=== PATIENT | male | born 1955 | race Caucasian/White ===

== ENCOUNTER 2021-07-10 11:03 | Emergency (ER) | payer MEDICARE, BC ==
[2021-07-10] MEDS ORDERED: Sodium Chloride 0.9% 1000 ML 1,000 ML IV STA (11:13)
[2021-07-10] MEDS ORDERED: Zofran 4 MG/2 ML VIAL IV ONE (11:13)
[2021-07-10] MEDS ORDERED: Zofran 4 MG/2 ML VIAL ONE (11:21)
[2021-07-10] MEDS ORDERED: Sodium Chloride 0.9% 1000 ML 1,000 ML ONE (11:21)
[2021-07-10 11:34] LABS: Appearance SLIGHTLY CLOUDY (CLEAR); Bacteria RARE /HPF (NEGATIVE); Bilirubin NEGATIVE (NEGATIVE); Blood MODERATE Ery/ul (0-5); Glucose NEGATIVE (NEGATIVE); Ketones NEGATIVE (NEGATIVE); Leukocyte Esterase NEGATIVE (NEGATIVE); Mucus SLIGHT /HPF (NEGATIVE); Nitrite NEGATIVE (NEGATIVE); Protein,Urine Dip 30 (Negative); RBC >101 /HPF (0-2); Specific Gravity 1.021 (1.005-1.025); Urobilinogen NEGATIVE mg/dL (0-1)
[2021-07-10 11:35] LABS: Absolute Neutrophil Ct (ANC) 4.84 (1.4-6.9); Basophil (Absolute #) 0.02 (0-0.4); Eosinophil % 0.7 % (0.00-5.0); Eosinophil (Absolute #) 0.05 (0-0.5); Hematocrit 44.6 % (42-50); Hemoglobin 13.8 gm/dl (12.5-18.0); Lymphocyte (Absolute #) 1.52 (1.0-4.6); Lymphocytes % 22.1 % (24.0-44.0); Mean Corpuscular Hemoglobin 30.9 pg (26-32); Mean Corpuscular Hgb Concent. 30.9 g/dl (32-36); Mean Platelet Volume 11.6 fl (7.5-11.0); Monocyte (Absolute #) 0.46 (0.0-1.3); Monocytes % 6.7 % (0.0-12.0); Neutrophil % 70.2 % (36.0-66.0); Platelet Count 106 K/mm3 (150-450); Red Blood Count 4.46 M/mm3 (4.1-5.6); Red Cell Distribution Width 13.1 % (11.5-14.0); White Blood Count 6.9 K/mm3 (4.0-10.5)
[2021-07-10 11:45] LABS: ALBUMIN 4.1 g/dL (3.5-5.0); ALKALINE PHOSPHATASE 91 U/L (38-126); AMYLASE 61 U/L (30-110); ANION GAP 9.7 MEQ/L (5-15); BLOOD UREA NITROGEN 25 mg/dL (9-20); CHLORIDE 111 mmol/L (98-107); Calcium 8.4 mg/dL (8.4-10.2); Carbon Dioxide 23 mmol/L (22-30); Creatinine 1 1.21 mg/dL (0.66-1.25); EST GLOMERULAR FILTRATION RATE > 60.0 ML/MIN; Glucose 138 mg/dL (74-106); LIPASE 131 U/L (23-300); Potassium 3.9 mmol/L (3.5-5.1); SGOT/AST 32 U/L (17-59); SGPT/ALT 15 U/L (0-50); SODIUM 140 mmol/L (137-145)
--- NOTE | 2021-07-10 12:31 | XRAY ---
Indication: Right flank pain. Multiple contiguous axial images obtained through the abdomen and pelvis without contrast using renal stone protocol. Comparison: None Lung bases demonstrates small right lower lobe calcified granuloma posterior medially. No infiltrate or effusion. Heart not enlarged. Small hiatal hernia. There is a 5 mm right UVJ calculus. Proximal right ureter is prominent up to 9 mm along with mild hydronephrosis consistent with obstructive uropathy. Additional right lower renal punctate calculus. A few bilateral renal cysts, largest left midpole measuring 3.7 cm. Right mid kidney demonstrates a 3.5 cm round exophytic mass more dense than a simple cyst either solid renal mass versus complex/viscous cyst. Previous bariatric surgery. Noncontrasted stomach and bowel loops appear nonobstructed. Large bilateral inguinal hernias, right greater than left both with herniated bowel loops but no obstruction/incarceration. No free fluid/air. 1.9 cm gallstone and tiny hepatic/splenic calcified granulomas. Remaining liver, gallbladder, pancreas, spleen, adrenal glands, kidneys, ureters, and bladder are unremarkable for noncontrast exam. Mild scattered vascular calcifications without AAA. Osseous structures intact with mild osteopenia, minimal/mild degenerative changes throughout the spine, and mild levoscoliosis centered at L3. Impression: 1. 5 mm right UVJ calculus producing partial obstruction as detailed. Additional right renal punctate calculus. 2. Bilateral renal cysts. 3.5 cm right mid renal exophytic cyst more dense than a simple cyst, possible solid mass versus complex/viscous cyst. Renal ultrasound could help differentiate. 3. Large inguinal hernias, right greater than left as detailed without complications. 4. Incidental small hiatal hernia, chronic bony findings, and old granulomatous disease.
--- NOTE | 2021-07-10 12:33 | XRAY ---
Indication: Right flank pain. Comparison: None Portable chest demonstrates mild right infrahilar infiltrate versus atelectasis. Incidental large chunky right paratracheal and small medial right lung base calcified granulomas. Heart not enlarged with tortuous descending aorta. Bony thorax intact with mild osteopenia and degenerative changes. Impression: 1. Right infrahilar infiltrate versus atelectasis. 2. Chronic bony findings and old granulomatous disease.
--- NOTE | 2021-07-10 12:49 | ERPHSYRPT ---
- History of Present Illness Time Seen by Provider: 07/10/21 11:19 Historian: patient Exam Limitations: no limitations Patient Subjective Stated Complaint: Pt states "I have pain in my lower right back that goes aruond to the side." Triage Nursing Assessment: Pt presented alert and oriented X3, skin wpd Pt ambulates with an upright steady gait, able to speak in clear full sentences pt in no apparent respiratory distress. pt laying calmly on the bed. Physician History: Is a 65-year-old male who presents with a sudden onset this morning of right flank pain primarily in the right CVA area. He was recently seen at regional ER for similar type pain but that pain came around to the front and was diagnosed as gas. He had bariatric surgery 4 years ago. He has normal bowel movements he has some nausea and vomiting has had no fever chills or sweats. He is followed for his kidney function by Dr. Sim. Timing/Duration: today Activities at Onset: sleep Quality: stabbing Abdominal Pain Onset Location: flank (Right flank) Severity of Pain-Max: mild Severity of Pain-Current: mild Modifying Factors: Improves With: vomiting Associated Symptoms: nausea, vomiting Previous symptoms: no prior history Allergies/Adverse Reactions: No Known Drug Allergies Allergy (Verified 07/10/21 11:18) Home Medications: Amlodipine Besylate 5 mg PO DAILY 07/10/21 [History] Apixaban [Eliquis 5 mg Tablet] 5 mg PO DAILY 07/10/21 [History] Atorvastatin Calcium 40 mg PO DAILY 07/10/21 [History] Bisoprolol/Hydrochlorothiazide [Ziac 10-6.25 mg Tablet] 1 each PO DAILY 07/10/21 [History] Levothyroxine Sodium [Euthyrox] 200 mcg PO DAILY 07/10/21 [History] Omeprazole 20 mg PO DAILY 07/10/21 [History] Hx Tetanus, Diphtheria Vaccination/Date Given: No Hx Influenza Vaccination/Date Given: Yes Hx Pneumococcal Vaccination/Date Given: Yes Immunizations Up to Date: Yes Travel Risk - International Travel Have you traveled outside of the country in past 3 weeks: No - Coronavirus Screening Are you exhibiting any of the following symptoms?: No Close contact with a COVID-19 positive Pt in past 14-21 Days: No - Vaccine Status Have you recieved a Covid-19 vaccination: Yes 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 - Vaccination Dates Date of 2cond Vaccination (if applicable): 07/06/2020 - Review of Systems Constitutional: No Fever, No Chills Eyes: No Symptoms Ears, Nose, & Throat: No Symptoms Respiratory: No Cough, No Dyspnea Cardiac: No Chest Pain, No Edema, No Syncope Abdominal/Gastrointestinal: Nausea, Vomiting, No Abdominal Pain, No Diarrhea Genitourinary Symptoms: Flank Pain, No Dysuria Musculoskeletal: No Back Pain, No Neck Pain Skin: No Rash Neurological: No Dizziness, No Focal Weakness, No Sensory Changes Psychological: No Symptoms Endocrine: No Symptoms All Other Systems: Reviewed and Negative - Past Medical History Pertinent Past Medical History: Yes Neurological History: No Pertinent History ENT History: No Pertinent History Cardiac History: High Cholesterol, Hypertension Respiratory History: No Pertinent History Endocrine Medical History: Diabetes Type II Musculoskeletal History: No Pertinent History GI Medical History: No Pertinent History History: Renal Disease Psycho-Social History: No Pertinent History Male Reproductive Disorders: No Pertinent History - Past Surgical History Past Surgical History: Yes Other Surgical History: gastric bypass - Social History Smoking Status: Never smoker Exposure to second hand smoke: No Drug Use: none Patient Lives Alone: No - Nursing Vital Signs Nursing Vital Signs: Initial Vital Signs Temperature 97.2 F 07/10/21 11:09 Pulse Rate 64 07/10/21 11:09 Respiratory Rate 20 07/10/21 11:09 Blood Pressure 142/85 07/10/21 11:09 O2 Sat by Pulse Oximetry 98 07/10/21 11:09 Pain Scale Pain Intensity 5 - Physical Exam General Appearance: no apparent distress, alert Eye Exam: PERRL/EOMI, eyes nml inspection Ears, Nose, Throat Exam: normal ENT inspection, pharynx normal, moist mucous membranes Neck Exam: normal inspection, non-tender, supple, full range of motion Respiratory Exam: normal breath sounds, lungs clear, No respiratory distress Cardiovascular Exam: regular rate/rhythm, normal heart sounds Gastrointestinal/Abdomen Exam: soft, No tenderness, No mass Back Exam: normal inspection, normal range of motion, No CVA tenderness, No vertebral tenderness Extremity Exam: normal inspection, normal range of motion, pelvis stable Neurologic Exam: alert, oriented x 3, cooperative, normal mood/affect, nml cerebellar function, sensation nml, No motor deficits Skin Exam: normal color, warm, dry SpO2: 97 - Course Nursing assessment & vital signs reviewed: Yes - Radiology Exams Chest X-ray Interpretation: Reviewed by me (Right infrahilar infiltrate versus atelectasis) - CT Exams Abdomen/Pelvis CT Interpretation: Other (Negative patient has a 5 mm stone at the UVJ on the right bilateral inguinal hernias multiple renal cyst there is a right renal cyst which needs further evaluation by ultrasound.) Ordered Tests: Active Orders 24 hr Category Date Time Status EKG-ER Only STAT Care 07/10/21 11:13 Active IV Insertion STAT Care 07/10/21 11:13 Active ABDOMEN AND PELVIS W/0 CONTRAS [CT] Stat Exams 07/10/21 11:13 Completed CHEST 1 VIEW (PORTABLE) Stat Exams 07/10/21 11:13 Completed AMYLASE Stat Lab 07/10/21 11:20 Completed CBC W DIFF Stat Lab 07/10/21 11:20 Completed CMP Stat Lab 07/10/21 11:20 Completed CULTURE,URINE Stat Lab 07/10/21 11:20 Received LIPASE Stat Lab 07/10/21 11:20 Completed Lactic Acid Stat Lab 07/10/21 11:13 Completed TROPONIN Q3H Lab 07/10/21 11:20 Completed TROPONIN Q3H Lab 07/10/21 14:15 Ordered TROPONIN Q3H Lab 07/10/21 17:15 Ordered TROPONIN Q3H Lab 07/10/21 20:15 Ordered TROPONIN Q3H Lab 07/10/21 23:15 Ordered UA W/RFX UR CULTURE Stat Lab 07/10/21 11:20 Completed Medication Summary Discontinued Medications Generic Name Dose Route Start Last Admin Trade Name Freq PRN Reason Stop Dose Admin Sodium Chloride 1,000 mls @ 999 mls/hr 07/10/21 11:13 07/10/21 12:31 Sodium Chloride 0.9% 1000 Ml IV 07/10/21 12:13 Infused .Q1H1M STA Infusion Sodium Chloride Confirm 07/10/21 11:21 Sodium Chloride 0.9% 1000 Ml Administered 07/10/21 11:22 Dose 1,000 mls @ ud .ROUTE .STK-MED ONE Ondansetron HCl 4 mg 07/10/21 11:13 07/10/21 11:24 Ondansetron Hcl 4 Mg/2 Ml Vial IV 07/10/21 11:14 4 mg STAT ONE Administration Ondansetron HCl Confirm 07/10/21 11:21 Ondansetron Hcl 4 Mg/2 Ml Vial Administered 07/10/21 11:22 Dose 4 mg .ROUTE .K-MED ONE Lab/Rad Data: Laboratory Result Diagrams 07/10/21 11:20 07/10/21 11:20 Laboratory Results 07/10/21 07/10/21 07/10/21 Range/Units 11:20 11:20 11:20 WBC 6.9 (4.0-10.5) K/mm3 RBC 4.46 (4.1-5.6) M/mm3 Hgb 13.8 (12.5-18.0) gm/dl Hct 44.6 (42-50) % MCV 100.0 (78-100) fl MCH 30.9 (26-32) pg MCHC 30.9 L (32-36) g/dl RDW 13.1 (11.5-14.0) % Plt Count 106 L (150-450) K/mm3 MPV 11.6 H (7.5-11.0) fl Gran % 70.2 H (36.0-66.0) % Eos # (Auto) 0.05 (0-0.5) Absolute Lymphs (auto) 1.52 (1.0-4.6) Absolute Monos (auto) 0.46 (0.0-1.3) Lymphocytes % 22.1 L (24.0-44.0) % Monocytes % 6.7 (0.0-12.0) % Eosinophils % 0.7 (0.00-5.0) % Basophils % 0.3 (0.0-0.4) % Absolute Granulocytes 4.84 (1.4-6.9) Basophils # 0.02 (0-0.4) Sodium 140 (137-145) mmol/L Potassium 3.9 (3.5-5.1) mmol/L Chloride 111 H (98-107) mmol/L Carbon Dioxide 23 (22-30) mmol/L Anion Gap 9.7 (5-15) MEQ/L BUN 25 H (9-20) mg/dL Creatinine 1.21 (0.66-1.25) mg/dL Estimated GFR > 60.0 ML/MIN Glucose 138 H (74-106) mg/dL Lactic Acid (0.4-2.0) Calcium 8.4 (8.4-10.2) mg/dL Total Bilirubin 0.70 (0.2-1.3) mg/dL AST 32 (17-59) U/L ALT 15 (0-50) U/L Alkaline Phosphatase 91 (38-126) U/L Troponin I < 0.012 (0.000-0.034) ng/mL Serum Total Protein 7.0 (6.3-8.2) g/dL Albumin 4.1 (3.5-5.0) g/dL Amylase 61 (30-110) U/L Lipase 131 (23-300) U/L Urine Color (YELLOW) Urine Appearance (CLEAR) Urine pH (5-6) Ur Specific [place] (1.005-1.025) Urine Protein (Negative) Urine Ketones (NEGATIVE) Urine Blood (0-5) Justin/ul Urine Nitrite (NEGATIVE) Urine Bilirubin (NEGATIVE) Urine Urobilinogen (0-1) mg/dL Ur Leukocyte Esterase (NEGATIVE) Urine WBC (Auto) (0-5) /HPF Urine RBC (Auto) (0-2) /HPF U Epithel Cells (Auto) (FEW) /HPF Urine Bacteria (Auto) (NEGATIVE) /HPF Urine Mucus (Auto) (NEGATIVE) /HPF Urine Culture Reflexed (NO) Urine Glucose (NEGATIVE) mg/dL 07/10/21 07/10/21 Range/Units 11:20 11:13 WBC (4.0-10.5) K/mm3 RBC (4.1-5.6) M/mm3 Hgb (12.5-18.0) gm/dl Hct (42-50) % MCV (78-100) fl MCH (26-32) pg MCHC (32-36) g/dl RDW (11.5-14.0) % Plt Count (150-450) K/mm3 MPV (7.5-11.0) fl Gran % (36.0-66.0) % Eos # (Auto) (0-0.5) Absolute Lymphs (auto) (1.0-4.6) Absolute Monos (auto) (0.0-1.3) Lymphocytes % (24.0-44.0) % Monocytes % (0.0-12.0) % Eosinophils % (0.00-5.0) % Basophils % (0.0-0.4) % Absolute Granulocytes (1.4-6.9) Basophils # (0-0.4) Sodium (137-145) mmol/L Potassium (3.5-5.1) mmol/L Chloride (98-107) mmol/L Carbon Dioxide (22-30) mmol/L Anion Gap (5-15) MEQ/L BUN (9-20) mg/dL Creatinine (0.66-1.25) mg/dL Estimated GFR ML/MIN Glucose (74-106) mg/dL Lactic Acid 2.3 H (0.4-2.0) Calcium (8.4-10.2) mg/dL Total Bilirubin (0.2-1.3) mg/dL AST (17-59) U/L ALT (0-50) U/L Alkaline Phosphatase (38-126) U/L Troponin I (0.000-0.034) ng/mL Serum Total Protein (6.3-8.2) g/dL Albumin (3.5-5.0) g/dL Amylase (30-110) U/L Lipase (23-300) U/L Urine Color YELLOW (YELLOW) Urine Appearance SLIGHTLY CLOUDY (CLEAR) Urine pH 5.0 (5-6) Ur Specific [place] 1.021 (1.005-1.025) Urine Protein 30 (Negative) Urine Ketones NEGATIVE (NEGATIVE) Urine Blood MODERATE (0-5) Justin/ul Urine Nitrite NEGATIVE (NEGATIVE) Urine Bilirubin NEGATIVE (NEGATIVE) Urine Urobilinogen NEGATIVE (0-1) mg/dL Ur Leukocyte Esterase NEGATIVE (NEGATIVE) Urine WBC (Auto) 6-10 (0-5) /HPF Urine RBC (Auto) >101 (0-2) /HPF U Epithel Cells (Auto) NONE (FEW) /HPF Urine Bacteria (Auto) RARE (NEGATIVE) /HPF Urine Mucus (Auto) SLIGHT (NEGATIVE) /HPF Urine Culture Reflexed YES (NO) Urine Glucose NEGATIVE (NEGATIVE) mg/dL - Progress Progress: improved Progress Note: 07/10/21 12:49 Patient was informed of the findings and was told to follow-up with Dr. Ro enriquez for evaluation of the right renal cyst. He was also told that he should get further evaluation if he has not passed the stone within 48 hours. - Departure Departure Disposition: Home Clinical Impression: Right ureteral stone, Renal cyst Condition: Stable Critical Care Time: No Referrals: JANKI HERNANDEZ MD [Primary Care Provider] - Follow up/PCP as directed Instructions: Kidney Stones (DC) Prescriptions: Hydrocodone/Acetaminophen [Hydrocodone-Acetamin 5-325 mg] 1 tab PO Q6HPRN PRN 3 Days #12 tablet MDD 4 PRN Reason: Pain Ondansetron ODT 4 MG [Zofran Odt 4 mg] 4 mg PO Q6H PRN PRN #10 tablet PRN Reason: Vomiting Cephalexin Mh 500 mg [Keflex 500 mg] 500 mg PO TID 7 Days #21 cap
[2021-07-10 12:59] VITALS: BP 124/74; PULSE 61; O2SAT 93
== END 2021-07-10 13:04 | disposition home or self-care (01) ==
LOC: ED 11:03
DX: N13.2 Hydronephrosis with renal and ureteral calculous obstruction (principal); N28.1 Cyst of kidney, acquired; R11.2 Nausea with vomiting, unspecified; E78.5 Hyperlipidemia, unspecified; I10 Essential (primary) hypertension; E11.9 Type 2 diabetes mellitus without complications; Z98.84 Bariatric surgery status; Z79.01 Long term (current) use of anticoagulants; Z79.899 Other long term (current) drug therapy; Z79.891 Long term (current) use of opiate analgesic
CPT/HCPCS: 36000; 36415; 71045; 74176; 80053; 81001; 82150; 83605; 83690; 84484; 85025; 87086; 93005; 96360; 96374; 99284; J2405

== ENCOUNTER 2021-10-19 12:29 | Emergency (ER) | payer MEDICARE, BC ==
[2021-10-19] MEDS ORDERED: MORPHINE SULFATE 4 MG INJ IV ONE (13:10)
[2021-10-19] MEDS ORDERED: Zofran 4 MG/2 ML VIAL IV ONE (13:10)
[2021-10-19 13:27] LABS: Absolute Neutrophil Ct (ANC) 6.64 x10^3/uL (1.4-6.9); Basophil (Absolute #) 0.04 x10^3/uL (0-0.4); Eosinophil % 0.2 % (0.00-5.0); Eosinophil (Absolute #) 0.02 x10^3/uL (0-0.5); Hematocrit 43.4 % (42-50); Hemoglobin 13.7 g/dL (12.5-18.0); Lymphocyte (Absolute #) 1.09 x10^3/uL (1.0-4.6); Mean Cell Volume 98.4 fL (78-100); Mean Corpuscular Hemoglobin 31.1 pg (26-32); Mean Corpuscular Hgb Concent. 31.6 g/dL (32-36); Mean Platelet Volume 10.7 fL (7.5-11.0); Monocyte (Absolute #) 0.57 x10^3/uL (0.0-1.3); Monocytes % 6.8 % (0.0-12.0); Neutrophil % 79.1 % (36.0-66.0); Platelet Count 113 x10^3/uL (150-450); Red Blood Count 4.41 x10^6/uL (4.1-5.6); Red Cell Distribution Width 12.9 % (11.5-14.0); White Blood Count 8.4 x10^3/uL (4.0-10.5)
[2021-10-19] MEDS ORDERED: Zofran 4 MG/2 ML VIAL ONE (13:33)
[2021-10-19] MEDS ORDERED: MORPHINE SULFATE 4 MG INJ ONE (13:33)
--- NOTE | 2021-10-19 13:37 | ERPHSYRPT ---
- History of Present Illness Time Seen by Provider: 10/19/21 12:35 Historian: patient Exam Limitations: no limitations Patient Subjective Stated Complaint: pt here for lower abd pain since yesterday, had a kidney stone last month, no fever or vomiting Triage Nursing Assessment: pt alert, resp easy, skin w/d/p. abd soft, no edma noted Physician History: 65-year-old morbidly obese male with bilateral inguinal hernias presented to the ER with chief complaint of lower abdominal pain intermittently since yesterday sharp back pain with radiation to the back without any associated aggravating or relieving factors. Reports having similar symptoms last month and had a kidney stone. No associated nausea vomiting or diarrhea reported. Denies any urinary symptoms. No fever or chills reported Timing/Duration: yesterday, intermittent, gradual onset, worse Activities at Onset: rest Quality: cramping, sharpness Abdominal Pain Onset Location: RLQ, LLQ, flank Pain Radiation: back Severity of Pain-Max: moderate Severity of Pain-Current: moderate Modifying Factors: Improves With: nothing Associated Symptoms: denies symptoms Previous symptoms: same symptoms as today Allergies/Adverse Reactions: No Known Drug Allergies Allergy (Verified 10/19/21 12:46) Home Medications: Amlodipine Besylate 5 mg PO DAILY 07/10/21 [History] Apixaban [Eliquis 5 mg Tablet] 5 mg PO DAILY 07/10/21 [History] Atorvastatin Calcium 40 mg PO DAILY 07/10/21 [History] Bisoprolol/Hydrochlorothiazide [Ziac 10-6.25 mg Tablet] 1 each PO DAILY 07/10/21 [History] Levothyroxine Sodium [Euthyrox] 225 mcg PO DAILY 07/10/21 [History] Omeprazole 20 mg PO DAILY 07/10/21 [History] Hx Tetanus, Diphtheria Vaccination/Date Given: No Hx Influenza Vaccination/Date Given: Yes Hx Pneumococcal Vaccination/Date Given: Yes Immunizations Up to Date: Yes Travel Risk - International Travel Have you traveled outside of the country in past 3 weeks: No - Coronavirus Screening Are you exhibiting any of the following symptoms?: No Close contact with a COVID-19 positive Pt in past 14-21 Days: No - Vaccine Status Have you recieved a Covid-19 vaccination: Yes 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 - Vaccination Dates Date of 2cond Vaccination (if applicable): 07/06/2020 - Review of Systems Constitutional: No Symptoms Eyes: No Symptoms Respiratory: No Symptoms Cardiac: No Symptoms Abdominal/Gastrointestinal: Abdominal Pain Genitourinary Symptoms: No Symptoms Musculoskeletal: Arthralgias Skin: No Symptoms Neurological: No Symptoms Endocrine: No Symptoms Hematologic/Lymphatic: No Symptoms Immunological/Allergic: No Symptoms - Past Medical History Pertinent Past Medical History: Yes Neurological History: No Pertinent History ENT History: No Pertinent History Cardiac History: High Cholesterol, Hypertension Respiratory History: No Pertinent History Endocrine Medical History: Diabetes Type II Musculoskeletal History: No Pertinent History GI Medical History: No Pertinent History History: Renal Disease Psycho-Social History: No Pertinent History Male Reproductive Disorders: No Pertinent History - Past Surgical History Past Surgical History: Yes Gastrointestinal: Hernia Repair Other Surgical History: gastric bypass,thyroid - Social History Smoking Status: Never smoker Exposure to second hand smoke: No Drug Use: none Patient Lives Alone: No - Nursing Vital Signs Nursing Vital Signs: Initial Vital Signs Temperature 97.6 F 10/19/21 12:40 Pulse Rate 58 L 10/19/21 12:40 Respiratory Rate 18 10/19/21 12:40 Blood Pressure 157/87 10/19/21 12:40 O2 Sat by Pulse Oximetry 95 10/19/21 12:40 Pain Scale Pain Intensity 5 - Physical Exam General Appearance: no apparent distress, alert Eye Exam: PERRL/EOMI Ears, Nose, Throat Exam: normal ENT inspection Neck Exam: normal inspection, full range of motion Respiratory Exam: normal breath sounds, lungs clear Cardiovascular Exam: regular rate/rhythm, normal heart sounds Gastrointestinal/Abdomen Exam: soft, normal bowel sounds, tenderness (Lower abdomen bilaterally without guarding or rebound tenderness) Back Exam: normal inspection, normal range of motion, No CVA tenderness Extremity Exam: normal inspection, normal range of motion, pelvis stable Neurologic Exam: alert, oriented x 3, cooperative Skin Exam: normal color SpO2 Interpretation: normal SpO2: 95 O2 Delivery: Room Air Ordered Tests: Active Orders 24 hr Category Date Time Status IV Insertion STAT Care 10/19/21 13:10 Active NPO (ED) STAT Care 10/19/21 13:10 Active ABDOMEN AND PELVIS W/0 CONTRAS [CT] Stat Exams 10/19/21 13:11 Completed CBC W DIFF Stat Lab 10/19/21 13:26 Completed CMP Stat Lab 10/19/21 13:26 Completed LIPASE Stat Lab 10/19/21 13:26 Completed Lactic Acid Stat Lab 10/19/21 13:27 Completed UA W/RFX CULTURE Stat Lab 10/19/21 14:56 Completed Medication Summary Discontinued Medications Generic Name Dose Route Start Last Admin Trade Name Norma PRN Reason Stop Dose Admin Morphine Sulfate 4 mg 10/19/21 13:10 10/19/21 13:37 Morphine Sulfate 4 Mg/Ml Injection IV 10/19/21 13:11 4 mg STAT ONE Administration Morphine Sulfate Confirm 10/19/21 13:33 Morphine Sulfate 4 Mg/Ml Injection Administered 10/19/21 13:34 Dose 4 mg .ROUTE .STK-MED ONE Ondansetron HCl 4 mg 10/19/21 13:10 10/19/21 13:37 Ondansetron Hcl 4 Mg/2 Ml Vial IV 10/19/21 13:11 4 mg STAT ONE Administration Ondansetron HCl Confirm 10/19/21 13:33 Ondansetron Hcl 4 Mg/2 Ml Vial Administered 10/19/21 13:34 Dose 4 mg .ROUTE .STK-MED ONE Lab/Rad Data: Laboratory Result Diagrams 10/19/21 13:26 10/19/21 13:26 Laboratory Results 10/19/21 10/19/21 10/19/21 Range/Units 14:56 13:27 13:26 WBC (4.0-10.5) x10^3/uL RBC (4.1-5.6) x10^6/uL Hgb (12.5-18.0) g/dL Hct (42-50) % MCV (78-100) fL MCH (26-32) pg MCHC (32-36) g/dL RDW (11.5-14.0) % Plt Count (150-450) x10^3/uL MPV (7.5-11.0) fL Gran % (36.0-66.0) % Immature Gran % (Auto) (0.00-0.4) % Nucleat RBC Rel Count (0.00-0.1) % Eos # (Auto) (0-0.5) x10^3/uL Immature Gran # (Auto) (0.00-0.03) x10^3u/L Absolute Lymphs (auto) (1.0-4.6) x10^3/uL Absolute Monos (auto) (0.0-1.3) x10^3/uL Absolute Nucleated RBC (0.00-0.01) x10^3u/L Lymphocytes % (24.0-44.0) % Monocytes % (0.0-12.0) % Eosinophils % (0.00-5.0) % Basophils % (0.0-0.4) % Absolute Granulocytes (1.4-6.9) x10^3/uL Basophils # (0-0.4) x10^3/uL Sodium 139 (137-145) mmol/L Potassium 3.8 (3.5-5.1) mmol/L Chloride 104 (98-107) mmol/L Carbon Dioxide 24 (22-30) mmol/L Anion Gap 14.8 (5-15) MEQ/L BUN 19 (9-20) mg/dL Creatinine 1.20 (0.66-1.25) mg/dL Estimated GFR > 60.0 ML/MIN Glucose 118 H (74-106) mg/dL Lactic Acid 1.2 (0.4-2.0) Calcium 9.0 (8.4-10.2) mg/dL Total Bilirubin 0.70 (0.2-1.3) mg/dL AST 26 (17-59) U/L ALT 14 (0-50) U/L Alkaline Phosphatase 97 (38-126) U/L Serum Total Protein 6.9 (6.3-8.2) g/dL Albumin 4.0 (3.5-5.0) g/dL Lipase 65 (23-300) U/L Urinalys Dipstick Clnc MAIN LAB Urine Color YELLOW (YELLOW) Urine Appearance CLEAR (CLEAR) Urine pH 5.0 (5-6) Ur Specific [place] 1.025 (1.005-1.025) POC Urine Protein Conf TRACE (Negative) Urine Ketones SMALL-15 (NEGATIVE) Urine Nitrite NEGATIVE (NEGATIVE) Urine Bilirubin NEGATIVE (NEGATIVE) Urine Urobilinogen 0.2 (0-1) mg/dL Urine Leukocytes NEGATIVE (NEGATIVE) Urine WBC (Auto) NONE (0-5) /HPF Urine RBC (Auto) NONE (0-2) /HPF U Epithel Cells (Auto) NONE (FEW) /HPF Urine Bacteria (Auto) NONE (NEGATIVE) /HPF Urine RBC NEGATIVE (0-5) Justin/ul Urine Mucus (Auto) SLIGHT (NEGATIVE) /HPF Ur Culture Indicated? NO Urine Glucose NEGATIVE (NEGATIVE) mg/dL 10/19/21 Range/Units 13:26 WBC 8.4 (4.0-10.5) x10^3/uL RBC 4.41 (4.1-5.6) x10^6/uL Hgb 13.7 (12.5-18.0) g/dL Hct 43.4 (42-50) % MCV 98.4 (78-100) fL MCH 31.1 (26-32) pg MCHC 31.6 L (32-36) g/dL RDW 12.9 (11.5-14.0) % Plt Count 113 L (150-450) x10^3/uL MPV 10.7 (7.5-11.0) fL Gran % 79.1 H (36.0-66.0) % Immature Gran % (Auto) 0.4 (0.00-0.4) % Nucleat RBC Rel Count 0.0 (0.00-0.1) % Eos # (Auto) 0.02 (0-0.5) x10^3/uL Immature Gran # (Auto) 0.03 (0.00-0.03) x10^3u/L Absolute Lymphs (auto) 1.09 (1.0-4.6) x10^3/uL Absolute Monos (auto) 0.57 (0.0-1.3) x10^3/uL Absolute Nucleated RBC 0.00 (0.00-0.01) x10^3u/L Lymphocytes % 13.0 L (24.0-44.0) % Monocytes % 6.8 (0.0-12.0) % Eosinophils % 0.2 (0.00-5.0) % Basophils % 0.5 (0.0-0.4) % Absolute Granulocytes 6.64 (1.4-6.9) x10^3/uL Basophils # 0.04 (0-0.4) x10^3/uL Sodium (137-145) mmol/L Potassium (3.5-5.1) mmol/L Chloride (98-107) mmol/L Carbon Dioxide (22-30) mmol/L Anion Gap (5-15) MEQ/L BUN (9-20) mg/dL Creatinine (0.66-1.25) mg/dL Estimated GFR ML/MIN Glucose (74-106) mg/dL Lactic Acid (0.4-2.0) Calcium (8.4-10.2) mg/dL Total Bilirubin (0.2-1.3) mg/dL AST (17-59) U/L ALT (0-50) U/L Alkaline Phosphatase (38-126) U/L Serum Total Protein (6.3-8.2) g/dL Albumin (3.5-5.0) g/dL Lipase (23-300) U/L Urinalys Dipstick Clnc Urine Color (YELLOW) Urine Appearance (CLEAR) Urine pH (5-6) Ur Specific [place] (1.005-1.025) POC Urine Protein Conf (Negative) Urine Ketones (NEGATIVE) Urine Nitrite (NEGATIVE) Urine Bilirubin (NEGATIVE) Urine Urobilinogen (0-1) mg/dL Urine Leukocytes (NEGATIVE) Urine WBC (Auto) (0-5) /HPF Urine RBC (Auto) (0-2) /HPF U Epithel Cells (Auto) (FEW) /HPF Urine Bacteria (Auto) (NEGATIVE) /HPF Urine RBC (0-5) Justin/ul Urine Mucus (Auto) (NEGATIVE) /HPF Ur Culture Indicated? Urine Glucose (NEGATIVE) mg/dL - Progress Progress: improved, re-examined Progress Note: 10/19/21 15:40 65-year-old is evaluated for lower abdominal pain since yesterday. Given symptomatic treatment for pain, on reevaluation pain is completely resolved. No peritoneal signs. Patient has normal white count, grossly unremarkable chemistries and CT did show bilateral inguinal hernia with some concern for right side incarceration with fluid filled bowels. Discussed with Dr. Myers who thinks patient has this chronically there and would like to see him now in his office. Plan discussed with patient and he is going to his office now. Discussed with : Kal Will see patient in: office Counseled pt/family regarding: lab results, diagnosis, need for follow-up, rad results - Departure Departure Disposition: Home Clinical Impression: Lower abdominal pain, Inguinal hernia Condition: Stable Critical Care Time: No Referrals: JANKI HERNANDEZ MD [Primary Care Provider] - Follow Up with PCP/3 days RIK MYERS [ACTIVE STAFF] - Follow up/PCP as directed (today) Instructions: Severe Abdominal Pain, Adult (DC) Additional Instructions: go to general surgery office now for further evaluation. Return to ER for worsening pain, fever chills, vomiting etc.
[2021-10-19 13:46] LABS: ALKALINE PHOSPHATASE 97 U/L (38-126); ANION GAP 14.8 MEQ/L (5-15); BLOOD UREA NITROGEN 19 mg/dL (9-20); CHLORIDE 104 mmol/L (98-107); Carbon Dioxide 24 mmol/L (22-30); EST GLOMERULAR FILTRATION RATE > 60.0 ML/MIN; Glucose 118 mg/dL (74-106); LIPASE 65 U/L (23-300); Potassium 3.8 mmol/L (3.5-5.1); SGOT/AST 26 U/L (17-59); SGPT/ALT 14 U/L (0-50); SODIUM 139 mmol/L (137-145); Total Protein 6.9 g/dL (6.3-8.2)
[2021-10-19 14:21] VITALS: BP 126/86
--- NOTE | 2021-10-19 14:35 | XRAY ---
Indication: Right lower quadrant pain 2 days. Multiple contiguous axial images obtained through the abdomen and pelvis without contrast. Comparison: July 10, 2021. Lung bases demonstrate stable small right lower lobe calcified granuloma. No infiltrate or effusion. Heart not enlarged. Stable small hiatal hernia. Again previous bariatric surgery. Noncontrasted stomach and bowel loops nonobstructed. There remains large bilateral inguinal hernias, right greater than left again with herniated bowel loops. Right inguinal hernia demonstrates new mild fluid distended bowel loops with fluid leveling and small free fluid concerning for incarceration. No free air. Stable 1.9 cm gallstone, bilateral renal cysts, and tiny nonobstructed right renal punctate calculus. Again several tiny hepatic/splenic calcified granulomas. Remaining liver, gallbladder, pancreas, spleen, adrenal glands, kidneys, ureters, and bladder are unremarkable for noncontrast exam. Again mild aortoiliac calcifications without AAA. Osseous structures intact again with osteopenia, degenerative changes of the spine, and mild levoscoliosis. Impression: 1. Again large bilateral inguinal hernias right greater than left. Right hernia now demonstrates mild fluid distended bowel loops with fluid leveling and free fluid concerning for incarceration. 2. Again chronic findings including small hiatal hernia, gallstone, bilateral renal cysts, nonobstructing right renal microcalculus, chronic bony findings, and old granulomatous disease.
[2021-10-19 15:29] LABS: Mucus SLIGHT /HPF (NEGATIVE)
[2021-10-19 15:33] LABS: Appearance CLEAR (CLEAR); Bilirubin NEGATIVE (NEGATIVE); Glucose NEGATIVE (NEGATIVE); Ketones SMALL-15 (NEGATIVE); Nitrite NEGATIVE (NEGATIVE); Protein,Urine Dip TRACE (Negative); RBC NEGATIVE Ery/ul (0-5); Specific Gravity 1.025 (1.005-1.025); Urobilinogen 0.2 mg/dL (0-1)
[2021-10-19 15:34] LABS: Urine Cultured Indicated? NO
[2021-10-19 15:36] LABS: Dipstick done @ ? MAIN LAB
[2021-10-19 15:44] VITALS: O2SAT 95
[2021-10-19 15:51] VITALS: PULSE 78
== END 2021-10-19 15:51 | disposition home or self-care (01) ==
LOC: ED 12:29
DX: R10.31 Right lower quadrant pain (principal); R10.32 Left lower quadrant pain; K40.20 Bilateral inguinal hernia, without obstruction or gangrene, not specified as recurrent; E78.5 Hyperlipidemia, unspecified; I10 Essential (primary) hypertension; E11.9 Type 2 diabetes mellitus without complications; Z79.01 Long term (current) use of anticoagulants; Z79.899 Other long term (current) drug therapy
CPT/HCPCS: 36000; 36415; 74176; 80053; 81015; 83605; 83690; 85025; 96374; 96375; 99284; J2270; J2405

== ENCOUNTER 2021-11-16 09:24 | Day surgery (SDC) | payer MEDICARE, BC ==
--- NOTE | 2021-11-10 09:06 | HP ---
DATE OF SURGERY: 11/16/2021 HISTORY OF PRESENT ILLNESS: The patient is a 65-year-old male presented with complaint of a right inguinal hernia. Complaining that the hernia goes into the scrotum and he can reduce it when he lays down. He has been to the emergency room for this at one point. Currently he says it now feels better. He does have an incarcerated right inguinal hernia on exam. PAST MEDICAL HISTORY: Hypertension, hyperlipidemia, congestive heart failure, atrial fibrillation. Diabetes mellitus type II. PAST SURGICAL HISTORY: Hernia repair in [place]. Bariatric surgery 2017. Ventral hernia repair 2018. Lanie-en-Y and revision of that in 2019. ALLERGIES: NKDA. MEDICATIONS: Eliquis, amlodipine, Bisoprolol, B12, levothyroxine, atorvastatin, omeprazole. FAMILY HISTORY: None reported. SOCIAL HISTORY: None reported. REVIEW OF SYSTEMS: CONSTITUTIONAL: Denies fever or chills. CHEST: Denies shortness of breath. CVS: Denies chest pain. ABDOMEN: Denies abdominal pain. PHYSICAL EXAMINATION: GENERAL: No acute distress. CHEST: Nonlabored. No shortness of breath. CVS: Regular rate and rhythm. ABDOMEN: Soft, major right inguinal hernia on exam. IMPRESSION: Major right incarcerated inguinal hernia. PLAN: Right inguinal hernia repair with mesh with Dr. Oh Myers. As dictated by Joan Almaguer NP.
[~2021-11-16 09:24] MED LIST: Lactated Ringers 1,000 ML IV ONE; Sensorcaine 0.25% 10 ML ONE
[2021-11-16] MEDS ORDERED: Lactated Ringers 1,000 ML IV ONE ×2 (09:45→13:32)
[2021-11-16] MEDS ORDERED: KEFZOL 1 GM** 3 G in Sodium Chloride 0.9% 50 ML 50 ML IV ONE (10:00)
[2021-11-16] MEDS ORDERED: Lactated Ringers 1,000 ML IV SCH (10:00)
[2021-11-16] MEDS ORDERED: Zemuron 100 MG/10 ML ONE (10:42)
[2021-11-16] MEDS ORDERED: Zofran 4 MG/2 ML VIAL ONE (10:42)
[2021-11-16] MEDS ORDERED: BRIDION 200MG/2ML IV ONE (10:42)
[2021-11-16] MEDS ORDERED: Xylocaine-Mpf 2% 5 Ml Vial ONE ×2 (10:42→12:47)
[2021-11-16] MEDS ORDERED: TORAdol 30 mg Injection ONE (10:42)
[2021-11-16] MEDS ORDERED: Decadron 4 MG INJ ONE ×2 (10:42→12:47)
[2021-11-16] MEDS ORDERED: DIPRIVAN 200 MG/20 ML IV ONE (10:42)
[2021-11-16] MEDS ORDERED: SUBLIMAZE 100 MCG/2 ML ONE ×2 (10:42→13:30)
[2021-11-16] MEDS ORDERED: KEFZOL 1 GM ONE (10:53)
[2021-11-16] MEDS ORDERED: ROBINUL ONE (11:13)
[2021-11-16] MEDS ORDERED: Ephedrine Sulfate 50 MG/ML ONE (11:27)
[2021-11-16] MEDS ORDERED: Marcaine 0.5%/Epinephrine 10 ML ONE (12:47)
[2021-11-16] MEDS ORDERED: Compazine 10 MG/2 ML ONE (13:32)
[2021-11-16] MEDS ORDERED: NORCO 5/325 MG PO PRN (14:43)
[2021-11-16] MEDS ORDERED: NORCO 5/325 MG ONE (14:45)
[2021-11-16 15:27] VITALS: BP 145/93; PULSE 57; O2SAT 95
--- NOTE | 2021-11-17 12:51 | OP ---
SURGERY DATE/TIME: 11/16/2021 1111 PREOPERATIVE DIAGNOSIS: Right inguinal hernia, large. POSTOPERATIVE DIAGNOSIS: Large right inguinal hernia 14 inches. PROCEDURE: Right inguinal hernia with mesh, difficult. SURGEON: Oh Myers M.D. ANESTHESIA: General. COMPLICATIONS: None. CONDITION: Stable. INDICATION: The patient has symptomatic hernia. DESCRIPTION OF PROCEDURE: Taken surgery. General anesthetic. Routine prep and drape this included the scrotum. Curvilinear incision. The sac was opened. A 14 inch inguinal hernia sac was present. It did totally reduce, showed no sliding component. With care and patience the sac was able to high ligated with 0 Prolene. The floor was totally blown out. A 2x4 mesh was sewn in and tacked in with sutures and tacks of 0 Prolene and tacks. Satisfactory approximation and hemostasis. The mesh had been brought up over the femoral vessels. The internal ring was one clamp tight. Hemostasis was satisfactory. The patient tolerated the procedure satisfactorily. Operative time was three times normal at about 1 hour and 15 minutes. The patient tolerated the procedure satisfactorily. Findings discussed with the family in the waiting area. The cord had been totally skeletonized. It was fixed in a Juan's ligament type fashion.
== END 2021-11-16 15:27 | disposition home or self-care (01) ==
LOC: SDC 09:24
PROVIDERS: ATTEND Surgery
DX: K40.90 Unilateral inguinal hernia, without obstruction or gangrene, not specified as recurrent (principal)
CPT/HCPCS: 64486; 76937; 76942; J0690; J1100; J1885; J2405; J2704; J3010; A9270-GY

== ENCOUNTER 2022-05-17 10:20 | Day surgery (SDC) | payer MEDICARE, BC ==
--- NOTE | 2022-05-16 13:05 | HP ---
DATE OF SURGERY: 05/17/2022 HISTORY OF PRESENT ILLNESS: The patient is a 66-year-old who presents with complaints of left inguinal pain. It looks like the patient had a right inguinal hernia repair in the past, now presents with left inguinal pain and bulge. He desires repair at this time. PAST MEDICAL HISTORY: Atrial fibrillation, hypertension, renal disease, hypothyroidism, hyperlipidemia, congestive heart failure. PAST SURGICAL HISTORY: Right inguinal hernia repair. Ventral hernia repair. Back surgery. Gastric bypass. ALLERGIES: NKDA. MEDICATIONS: Eliquis, omeprazole, levothyroxine, atorvastatin, B12, amiodarone, Bisoprolol. FAMILY HISTORY: None reported. SOCIAL HISTORY: None reported. REVIEW OF SYSTEMS: CONSTITUTIONAL: Denies fever or chills. CHEST: Denies shortness of breath. CVS: Denies chest pain. ABDOMEN: Reports left inguinal hernia pain. PHYSICAL EXAMINATION: GENERAL: No acute distress. CHEST: Nonlabored. No shortness of breath. CVS: Regular rate and rhythm. ABDOMEN: Soft. IMPRESSION: Symptomatic left inguinal hernia. PLAN: Left inguinal hernia repair with Dr. Oh Myers. As dictated by Joan Almaguer NP.
[2022-05-17] MEDS ORDERED: Lactated Ringers 1,000 ML IV ONE (10:37)
[2022-05-17] MEDS ORDERED: CEFAZOLIN 2 GM-D5W BAG** 2 GM/50 ML ML IV ONE (10:37)
[2022-05-17] MEDS ORDERED: KEFZOL 1 GM** 3 G in Sodium Chloride 0.9% 50 ML 50 ML IV ONE (10:51)
[2022-05-17] MEDS ORDERED: Lactated Ringers 1,000 ML IV SCH (11:00)
[2022-05-17 11:06] LABS: Hematocrit 39.4 % (42-50); Hemoglobin 12.1 g/dL (12.5-18.0); Mean Cell Volume 97.3 fL (78-100); Mean Corpuscular Hemoglobin 29.9 pg (26-32); Mean Corpuscular Hgb Concent. 30.7 g/dL (32-36); Mean Platelet Volume 10.3 fL (7.5-11.0); Platelet Count 117 x10^3/uL (150-450); Red Blood Count 4.05 x10^6/uL (4.1-5.6); Red Cell Distribution Width 14.7 % (11.5-14.0); White Blood Count 5.3 x10^3/uL (4.0-10.5)
[2022-05-17 11:18] LABS: ANION GAP 10.9 MEQ/L (5-15); CHLORIDE 111 mmol/L (98-107); Calcium 8.2 mg/dL (8.4-10.2); Carbon Dioxide 22 mmol/L (22-30); EST GLOMERULAR FILTRATION RATE 58.3 ML/MIN; Glucose 103 mg/dL (74-106); Potassium 3.6 mmol/L (3.5-5.1); SODIUM 140 mmol/L (137-145)
[2022-05-17] MEDS ORDERED: Sensorcaine 0.25% 10 ML ONE (13:37)
[2022-05-17] MEDS ORDERED: Pre-Attached Lta Kit TP ONE (13:37)
[2022-05-17] MEDS ORDERED: Quelicin Fliptop 200 MG/10 ML ONE (13:42)
[2022-05-17] MEDS ORDERED: Xylocaine-Mpf 2% 5 Ml Vial ONE (13:42)
[2022-05-17] MEDS ORDERED: DIPRIVAN 200 MG/20 ML IV ONE (13:42)
[2022-05-17] MEDS ORDERED: SUBLIMAZE 100 MCG/2 ML ONE (13:42)
[2022-05-17] MEDS ORDERED: Zofran 4 MG/2 ML VIAL ONE (13:42)
[2022-05-17] MEDS ORDERED: OFIRMEV IV ONE (13:51)
[2022-05-17] MEDS ORDERED: EXPAREL 133 MG/10 ML VIAL IJ ONE (13:51)
[2022-05-17] MEDS ORDERED: Decadron 4 MG INJ ONE (14:03)
[2022-05-17] MEDS ORDERED: Zemuron 100 MG/10 ML ONE ×2 (14:27→14:44)
[2022-05-17] MEDS ORDERED: ROBINUL ONE (14:44)
[2022-05-17] MEDS ORDERED: BLOXIVERZ IV ONE (14:44)
[2022-05-17] MEDS ORDERED: DEXMEDETOMIDINE 80 MCG/20ML-NS IV ONE (14:47)
[2022-05-17] MEDS ORDERED: MORPHINE SULFATE 4 MG INJ IV PRN (17:42)
[2022-05-17] MEDS ORDERED: Zofran 4 MG/2 ML VIAL IV PRN (17:44)
[2022-05-17] MEDS: Sodium Chloride 0.9% 1000 ML 1,000 ML IV SCH (18:38)
[2022-05-17] MEDS: NORCO 5/325 MG PO PRN ×2 (18:38→22:42)
[2022-05-18] MEDS: Sodium Chloride 0.9% 1000 ML 1,000 ML IV SCH (03:57)
[2022-05-18] MEDS: NORCO 5/325 MG PO PRN (03:57)
[2022-05-18] MEDS ORDERED: Sodium Chloride 0.9% 1000 ML 1,000 ML IV SCH (04:09)
[2022-05-18 07:02] VITALS: BP 111/68; PULSE 65; O2SAT 93
[2022-05-18] MEDS ORDERED: MORPHINE SULFATE 2 MG INJ IV PRN (07:06)
[2022-05-18] MEDS ORDERED: BUMEX 1 MG PO PRN (07:12)
[2022-05-18] MEDS ORDERED: NON-FORMULARY ITEM (Vitamin B Complex [Vitamin B Complex] 1 EACH Tablet) PO SCH (07:15)
[2022-05-18] MEDS ORDERED: Cyanocobalamin B-12 1000 MCG/ML IM SCH (07:15)
[2022-05-18] MEDS ORDERED: VITAMIN D PO SCH (07:15)
[2022-05-18] MEDS ORDERED: MEDICATION INTERVENTION MC SCH (07:45)
--- NOTE | 2022-05-18 08:00 | OP ---
SURGERY DATE/TIME: 05/17/2022 1351 PREOPERATIVE DIAGNOSIS: Generous left inguinal hernia. POSTOPERATIVE DIAGNOSIS: Generous left inguinal hernia. PROCEDURE: Left inguinal herniorrhaphy. SURGEON: Oh Myers M.D. ANESTHESIA: General. COMPLICATIONS: None. CONDITION: Stable. INDICATION: Abhijit De La Fuente presents with a generous left inguinal hernia. He is almost morbidly obese. He has a large skin fold to the lower abdomen. He has a hernia here. It is difficult to assess. DESCRIPTION OF PROCEDURE: He is taken to surgery. General anesthetic. Routine prep and drape. Time out performed. A lot of this bulge is actually below the inguinal ligament. The incision was made just a little above the inguinal ligament. There was a totally open hernia. There was a little rim of sac in places but mostly it was open. There was 18 inches of large bowel this was taken to the ring which happened to be a direct ring. There was just a little bit of additional cleaning and it was totally reduced. The cord was also left down at the symphysis pubis and then laterally. Three different sutures of 0 Prolene were used to buttress repair with sutures only. The cord structures basically came up right at the pubis from underneath and the hernia had been totally excluded intra-abdominally. The internal ring had been reconstituted. It looked like a satisfactory repair although this gentleman was quite robust. Specific instructions were given to the . Irrigated with normal saline. Subcu closed with 2-0 Vicryl. Skin closed with 4-0 Vicryl. Steri-Strips applied. Sterile dressing applied. The patient tolerated the procedure satisfactorily.
[2022-05-18] MEDS ORDERED: NON-FORMULARY ITEM (Bisoprolol Fumarate [Bisoprolol Fumarate] 10 MG Tablet) PO SCH (10:00)
[2022-05-18] MEDS ORDERED: ELIQUIS 2.5 MG TABLET PO SCH (10:00)
[2022-05-18] MEDS ORDERED: NON-FORMULARY ITEM (Omeprazole [Omeprazole] 20 MG Capsule.Dr) PO SCH (10:00)
[2022-05-18] MEDS ORDERED: MULTIVIT WITH IRON MINERALS PO SCH (10:00)
[2022-05-18] MEDS ORDERED: SYNTHROID 125 MCG PO SCH (10:00)
[2022-05-18] MEDS ORDERED: SYNTHROID 100 MCG PO SCH (10:00)
[2022-05-18] MEDS ORDERED: LIPITOR 40MG PO SCH (10:00)
[2022-05-18] MEDS ORDERED: NON-FORMULARY ITEM (Zinc [Zinc] 50 MG Tablet) PO SCH (10:00)
[2022-05-18] MEDS ORDERED: NON-FORMULARY ITEM (Apixaban*** [Eliquis 5 Mg Tablet***] 5 MG Tablet) PO SCH (10:00)
[2022-05-18] MEDS ORDERED: Zinc Gluconate 50 MG PO SCH (10:00)
[2022-05-18] MEDS ORDERED: Cordarone 200 MG PO SCH (10:00)
[2022-05-18] MEDS ORDERED: Calcium 500MG W/Vit D Tablet PO SCH (10:00)
[2022-05-18] MEDS ORDERED: Protonix 40MG Tablet PO SCH (10:00)
[2022-05-18] MEDS ORDERED: ZOCOR 20MG PO SCH (10:00)
[2022-05-18] MEDS ORDERED: THERAGRAN MULTIVITAMIN PO SCH (10:00)
[2022-05-18] MEDS ORDERED: FEOSOL 325 MG PO SCH (10:00)
[2022-05-18] MEDS ORDERED: LEVOTHYROXINE SODIUM 200 MCG PO SCH (10:00)
[2022-05-18] MEDS ORDERED: NORVASC 5 MG PO SCH (10:00)
[2022-05-18] MEDS ORDERED: NON-FORMULARY ITEM (Calcium Carbonate [Calcium] 500 MG Tablet) PO SCH (10:00)
[2022-05-22] MEDS ORDERED: VITA-BEE WITH C PO SCH (10:00)
== END 2022-05-18 10:05 | disposition home or self-care (01) ==
LOC: SDC 10:20 → MED SURG 15:55 → SDC 05-18 10:05
PROVIDERS: ATTEND Surgery
DX: K40.90 Unilateral inguinal hernia, without obstruction or gangrene, not specified as recurrent (principal)
CPT/HCPCS: 36415; 64486; 76937; 76942; 80048; 85027; 93005; J0330; J0690; J1100; J2270; J2405; J2704; J2710; J3010; L0625; A9270-GY

== ENCOUNTER 2024-11-18 05:58 | Day surgery (SDC) | payer MEDICARE, BC ==
[2024-11-18] MEDS ORDERED: CEFAZOLIN SODIUM ONE (06:07)
[2024-11-18] MEDS: Decadron 4 MG PO ONE (06:19)
[2024-11-18] MEDS: celeBREX 100 MG PO ONE (06:19)
[2024-11-18] MEDS: NEURONTIN PO ONE (06:19)
[2024-11-18] MEDS: TYLENOL EXTRA STRENGTH 500 MG PO ONE (06:19)
[2024-11-18 06:51] LABS: Calcium 8.8 mg/dL (8.4-10.2); Carbon Dioxide 18.0 mmol/L (22-30); Creatinine 1 1.71 mg/dL (0.66-1.25); EST GLOMERULAR FILTRATION RATE 42.5 ML/MIN; Glucose 125.0 mg/dL (74-106); Potassium 4.2 mmol/L (3.5-5.1)
[2024-11-18] MEDS ORDERED: VANCOCIN INJECTION IV ONE (07:18)
[2024-11-18] MEDS ORDERED: Versed 2 MG/2 ML Injection ONE (07:30)
[2024-11-18] MEDS ORDERED: SUBLIMAZE 100 MCG/2 ML ONE (07:30)
[2024-11-18] MEDS ORDERED: propofoL IV ONE (07:30)
[2024-11-18] MEDS ORDERED: ROCURONIUM BROMIDE IV ONE (07:30)
[2024-11-18] MEDS ORDERED: Astramorph-Pf 5 MG/10 ML ONE (07:32)
[2024-11-18] MEDS ORDERED: Marcaine 0.5%/Epinephrine 10 ML ONE (07:35)
[2024-11-18] MEDS ORDERED: MARCAINE 0.25% PF/ EPI 1:200,000 ONE (07:39)
[2024-11-18] MEDS ORDERED: Xylocaine-Mpf 2% 5 Ml Vial ONE (07:39)
[2024-11-18] MEDS: TRANEXAMIC 1,000 MG/100ML-NACL 1,000 MG/100 ML PIGGYBACK IV ONE (07:51)
[2024-11-18] MEDS ORDERED: KEFZOL 1 GM ONE (08:49)
[2024-11-18] MEDS ORDERED: PHENYLEPHRINE HCL ONE (10:11)
[2024-11-18] MEDS ORDERED: BRIDION 200MG/2ML IV ONE (10:30)
--- NOTE | 2024-11-18 11:50 | XRAY ---
Indication: Follow up surgery. Comparison: July 30, 2024 AP/cross-table lateral left knee is status post total knee arthroplasty with intact prosthesis and postoperative soft tissue swelling/emphysema. Again scattered vascular calcifications. No other bony, articular, or soft tissue abnormalities.
[2024-11-18] MEDS: Zofran 4 MG/2 ML VIAL IV PRN (12:31)
[2024-11-18] MEDS ORDERED: ZOFRAN ODT 4 MG PO PRN (12:57)
[2024-11-18] MEDS ORDERED: Hydromorphone 1 mg/ml Injection IV PRN (12:58)
[2024-11-18] MEDS ORDERED: DEMEROL 50 MG IV PRN (13:00)
[2024-11-18] MEDS ORDERED: Zofran 4 MG/2 ML VIAL IV PRN (13:00)
[2024-11-18] MEDS ORDERED: Sodium Chloride 0.9% 10 ML FLUSH Syringe IJ PRN (13:00)
[2024-11-18] MEDS ORDERED: Narcan 0.4 MG/ML IV PRN (13:00)
[2024-11-18] MEDS ORDERED: Nubain 10 MG/ML IV PRN (13:00)
[2024-11-18] MEDS ORDERED: BENADRYL 50 MG/ML IV PRN (13:00)
[2024-11-18] MEDS ORDERED: CLARITIN 10 MG PO PRN (13:00)
[2024-11-18] MEDS ORDERED: VITAMIN D PO SCH (13:00)
[2024-11-18] MEDS ORDERED: MORPHINE SULFATE 2 MG INJ IV PRN (13:00)
[2024-11-18] MEDS ORDERED: Flonase NASAL NS PRN (13:12)
[2024-11-18] MEDS ORDERED: Vitamin C 500 MG PO SCH (13:15)
[2024-11-18] MEDS: Phenergan 25 MG INJ*** 25 MG in Sodium Chloride 0.9% 100 ML IV PRN (14:33)
[2024-11-18] MEDS: JARDIANCE PO SCH (16:12)
[2024-11-18] MEDS: ZOCOR 20MG PO SCH (16:12)
[2024-11-18] MEDS: Flomax 0.4 MG PO SCH (16:13)
[2024-11-18] MEDS: Protonix 40MG Tablet PO SCH (16:13)
[2024-11-18] MEDS: PERCOCET TABLET 5/325MG PO PRN (20:24)
[2024-11-18] MEDS: ELIQUIS 2.5 MG TABLET PO SCH (21:39)
[2024-11-18] MEDS: THERAGRAN MULTIVITAMIN PO SCH (21:39)
[2024-11-19 04:55] LABS: Hematocrit 39.7 % (40.1-51.0); Hemoglobin 11.9 g/dL (13.7-17.5); Mean Corpuscular Hemoglobin 28.6 pg (25.7-32.2); Mean Corpuscular Hgb Concent. 30.0 g/dL (32.3-36.5); Platelet Count 139 x10^3/uL (163-337); Red Blood Count 4.16 x10^6/uL (4.63-6.08); White Blood Count 9.7 x10^3/uL (4.23-9.07)
[2024-11-19] MEDS: HOLD NARCOTIC ANALGESICS AND SEDATIVES X24 HR MC SCH (08:18)
[2024-11-19] MEDS: Zestril 5 MG PO SCH (08:20)
[2024-11-19] MEDS: SYNTHROID 125 MCG PO SCH (08:20)
[2024-11-19] MEDS: hydroDIURIL 25 MG PO SCH (08:21)
[2024-11-19] MEDS: KENALOG 0.1% CREAM 15 GM TP SCH (09:11)
[2024-11-19] MEDS: SILVADENE 50 GM TP SCH (09:11)
--- NOTE | 2024-11-19 10:47 | OP ---
SURGERY DATE/TIME: 11/18/2024 4157-9335 PREOPERATIVE DIAGNOSIS: Osteoarthritis, left knee. POSTOPERATIVE DIAGNOSIS: Osteoarthritis, left knee. PROCEDURE: Left total knee replacement arthroplasty utilizing the [employer] instrumentation. A size 9 femoral component cemented, a size F tibial component cemented, a 16 mm tibial polyethylene bearing tray, and an 8 x 25 single-peg all-polyethylene patella cemented. SURGEON: Anthony Corona II, DO ANESTHESIA: General, with a block for postop pain control. DESCRIPTION OF PROCEDURE AND FINDINGS: The patient was identified, and informed consent was obtained. The patient was taken to the operative suite and placed in supine position on the operating table after the block had been administered in the preop holding area. General anesthetic was administered, and once an appropriate level of anesthesia had been obtained, a tourniquet was placed high on the left thigh which was then prepped and draped in the usual sterile fashion. A standard time-out was taken. At this point, the leg was exsanguinated and the tourniquet elevated to 350 mmHg. The foot had been placed into the boot for the knee mehta. At this point, the knee was placed in a flexed position, and a standard midline incision was accomplished. Skin was incised. Dissection was carried out through the subcutaneous tissue. Then utilizing a fresh #10 blade, a standard medial parapatellar incision was accomplished. Upon entering the joint, a copious amount of grade 1 synovial fluid was encountered, as well as multiple loose bodies which were removed. The patient was noted to have hard eburnated bone on the entire femoral condyle, both medially and laterally, as well as having hard eburnated bone on both tibial plateaus and the patella as well. There were some very large osteophytes on the patella which were resected for visualization. Z-retractors were then placed medially and laterally. Portions of the infrapatellar fat pad, medial and lateral menisci were removed. The patient was anterior cruciate deficient. The stump was then removed. At this point then, the distal femoral Signature series cutting block was applied and held with its pins. The distal femoral cutting block was then applied, and the distal femoral cut was accomplished. The 4-in-1 cutting block was applied, and the anterior, posterior, and chamfer cuts were then made. Any remaining osteophytes were now removed from the femur including those from the intercondylar notch. At this point, a bone hook was placed, and a very large osteophyte was removed from the posteromedial joint, as well as a number of smaller osteophytes. Any remaining portion of menisci medially and laterally was now resected. The posterior retractor was positioned, and at this point then, the tibial guide was placed and held with its pins. The proximal tibial cutting block was applied, and the wafer of bone was resected with the oscillating saw. The proximal tibial wafer of bone was removed. Any remaining osteophytes were now removed. At this point, trial reduction showed that the size F tibial component was the appropriate size. It was held in the appropriate with the pins, and a trial femoral component was applied. The peg holes were drilled for the permanent component. The patient did have significantly osteoporotic bone, and the decision was made to cement all the components. At this point, the soft tissue balance was noted to be excellent in all planes of motion with the 16 mm trial poly. The patellar button was then milled, and an 8 x 25 button was noted to be the appropriate size. Excellent tracking was noted. At this point, the trial instrumentation was removed from the femur and the patella. The cruciate stem was cut in the tibia, and then the trial was removed. At this point, the joint was then irrigated with the pulse efficiency miner blasting and dried. The cement was vacuum mixed and then pressed into the interstices of the bone. Tibial component was cemented into position, followed by cementing of the femoral component into position. The 16 mm trial was placed, the knee was held in extension during the curing process, and all excess cement was removed. The patella was then cemented into position and held with its clamp. Once the cement had fully cured and all excess cement had been removed, the knee was again placed through a range of motion and noted to have excellent soft tissue balance in all planes of motion from full extension to flexion greater than 135 degrees. At this point, the trial tibial tray was removed. The joint was then copiously irrigated and the permanent tray was inserted and snapped into position. The joint was then irrigated again and closed with #2 Stratafix, 2-0 Monocryl, and 3-0 Stratafix subcuticular, augmented with Dermabond. An Aquacel dressing was applied. The patient was then transferred to the bed and taken to the recovery room in satisfactory condition, having tolerated the procedure well.
[2024-11-19 11:32] VITALS: BP 103/61; PULSE 61; RESP 16; TEMP 98.4; O2SAT 98
[2024-11-19] MEDS ORDERED: Hydromorphone 1 mg/ml Injection IV PRN (13:00)
[2024-11-19] MEDS ORDERED: Oxy-IR 5 MG PO PRN (13:00)
== END 2024-11-19 12:13 | disposition home or self-care (01) ==
LOC: SDC 05:58 → MED SURG 11:50 → SDC 11-19 12:13
PROVIDERS: ATTEND Orthopaedic Surgery
DX: M17.12 Unilateral primary osteoarthritis, left knee (principal); E78.5 Hyperlipidemia, unspecified; I10 Essential (primary) hypertension; Z79.899 Other long term (current) drug therapy
CPT/HCPCS: 01402; 27447; 36415; 62322; 64447; 73560; 76937; 76942; 80048; 82947; 85027; 94760; 97110; 97161; 97530; C1776; G0378